=== PATIENT | male | born 2000 | race African-American/Black ===

== ENCOUNTER 2025-07-17 13:40 | Emergency (ER) | payer MEDICAID, OTHER ==
[~2025-07-17] VITALS: Ht 177.8 cm; Wt 65.3 kg
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
[2025-07-17] MEDS ORDERED: METH-1181 PO (15:22)
[2025-07-17] MEDS ORDERED: IBUP-1455 PO (15:22)
[2025-07-17 16:14] VITALS: BP 118/68; PULSE 74; RESP 16; TEMP 98.7; O2SAT 97
== END 2025-07-17 16:16 | disposition home or self-care (01) ==
LOC: ER 13:40
DX: Z04.1 Encounter for examination and observation following transport accident (principal); V43.62XA Car passenger injured in collision with other type car in traffic accident, initial encounter; Y92.410 Unspecified street and highway as the place of occurrence of the external cause; Y93.89 Activity, other specified; Y99.8 Other external cause status
CPT/HCPCS: 72100